=== PATIENT | male | born 1975 | race African-American/Black ===

== ENCOUNTER 2025-05-26 12:40 | Emergency (ER) | payer BC ==
[~2025-05-26] VITALS: Ht 172.7 cm; Wt 131.5 kg
[2025-05-26 13:09] LABS: PLATELET COUNT (AUTO) 228 K/uL (152-348); RED BLOOD CELL COUNT(AUTO) 5.29 MIL/uL (4.06-5.63); RED CELL DISTRIBUTION WIDTH 14.2 % (12.1-16.2); WHITE BLOOD COUNT (AUTO) 8.8 K/uL (3.6-10.2)
[2025-05-26 13:10] LABS: *BILIRUBIN,URIN NEGATIVE (NEGATIVE); *CLARITY,URINE CLEAR (CLEAR); *COLOR,URINE YELLOW (YELLOW); *KETONES,URINE NEGATIVE (NEGATIVE); *PROTEIN,URINE NEGATIVE (NEGATIVE); *UROBILINOGEN,URINE 0.2 E.U./dl (NORMAL); LEUKOCYTE ESTERASE ,URINE 3+ (NEGATIVE); NITRITE, URINE NEGATIVE (NEGATIVE); UGLUCOSE NEGATIVE (NEGATIVE)
[2025-05-26 13:17] LABS: *BLOOD, URINE TRACE (NEGATIVE)
[2025-05-26 13:18] LABS: URINE AMORPHOUS URATE FEW /HPF
[2025-05-26 13:20] LABS: CREATININE 0.8 mg/dL (0.6-1.3); SODIUM SERUM 137.0 mmol/L (136-145); UREA NITROGEN, BLOOD 15.0 mg/dL (7-18)
[2025-05-26 13:25] LABS: ASPARTATE AMINOTRANSFERASE 38.0 U/L (15-37); TOTAL PROTEIN, SERUM 8.4 g/dL (6.4-8.2)
[2025-05-26] MEDS ORDERED: ONDANSETRON 4 MG/2 ML VIAL ONE (13:27)
[2025-05-26] MEDS: ONDANSETRON 4 MG/2 ML VIAL IV ONE (13:28)
[2025-05-26] MEDS: IV NORMAL SALINE 1000 ML BAG IV ONE (13:28)
[2025-05-26] MEDS ORDERED: MAG HYDROX/AL HYDROX/SIMETH 30 ML LIQUID UDC ONE (13:28)
[2025-05-26] MEDS ORDERED: LIDOCAINE VISCUS 2% 15 ML UDC ONE (13:28)
[2025-05-26] MEDS ORDERED: FAMOTIDINE. 20 MG/2 ML VIAL IV ONE (13:28)
[2025-05-26] MEDS: FAMOTIDINE. 20 MG/2 ML VIAL IV ONE (13:30)
[2025-05-26] MEDS: LIDOCAINE VISCUS 2% 15 ML UDC MM ONE (13:37)
[2025-05-26] MEDS: MAG HYDROX/AL HYDROX/SIMETH 30 ML LIQUID UDC PO ONE (13:37)
[2025-05-26] MEDS: CIPROFLOXACIN HCL 250 MG TABLET PO ONE (14:04)
[2025-05-26] MEDS ORDERED: CIPROFLOXACIN HCL 250 MG TABLET ONE (14:06)
[2025-05-26 14:30] VITALS: O2SAT 95
[2025-05-26] MEDS ORDERED: ONDA4TAB5 PO (14:32)
[2025-05-26] MEDS ORDERED: POLY17PO4 PO (14:32)
[2025-05-26] MEDS ORDERED: PANT20TA2 PO (14:32)
[2025-05-26] MEDS ORDERED: CIPR500T5 PO (14:32)
== END 2025-05-26 14:53 | disposition home or self-care (01) ==
LOC: ER 12:40
DX: K29.70 Gastritis, unspecified, without bleeding (principal); R10.13 Epigastric pain; K76.9 Liver disease, unspecified; N39.0 Urinary tract infection, site not specified; K21.9 Gastro-esophageal reflux disease without esophagitis; M54.9 Dorsalgia, unspecified; R74.01 Elevation of levels of liver transaminase levels; E78.5 Hyperlipidemia, unspecified; F14.10 Cocaine abuse, uncomplicated; F19.10 Other psychoactive substance abuse, uncomplicated; F17.210 Nicotine dependence, cigarettes, uncomplicated; F17.290 Nicotine dependence, other tobacco product, uncomplicated; G89.29 Other chronic pain; J45.909 Unspecified asthma, uncomplicated; K59.00 Constipation, unspecified; Z87.19 Personal history of other diseases of the digestive system; Z88.0 Allergy status to penicillin; Z88.8 Allergy status to other drugs, medicaments and biological substances
CPT/HCPCS: 99285; 96374; 76705; 96361; 96375; 80076; 80048; 81001; 83690; 85025; 87086; 36415; J1308; J2405; J7040; 87077; A4606; A4663